=== PATIENT | female | born 1965 | race Caucasian/White ===

== ENCOUNTER 2023-01-02 15:48 | Outpatient (CLI) | payer OTHER, SELFPAY | END 2023-01-02 15:49 | disposition home or self-care (01) | LOC: AMB 01-20 13:52 | PROVIDERS: Visit Provider Family Medicine | DX: S19.9XXA Unspecified injury of neck, initial encounter (principal); S49.92XA Unspecified injury of left shoulder and upper arm, initial encounter; V43.53XA Car driver injured in collision with pick-up truck in traffic accident, initial encounter; Y92.415 Exit ramp or entrance ramp of street or highway as the place of occurrence of the external cause | CPT/HCPCS: A0998 ==